=== PATIENT | male | born 1960 | race Caucasian/White ===

== ENCOUNTER 2020-08-17 09:07 | Outpatient (CLI) | payer BC ==
--- NOTE | 2020-08-17 14:51 | NM ---
Exam: Nuclear medicine imaging for Parkinson's HISTORY: Memory loss. Balance issues. Speech issues. Weight loss and tremors. TECHNIQUE: Patient was administered 4.7 mCi of I-123 Ioflupane intravenously, 3 hours prior to imagi ng FINDINGS: There is decreased signal intensity involving the left and right putamen. Overall there is slightly decreased activity in the left putamen with respect to the contralateral side. IMPRESSION: Decrease uptake in the putamen, left greater than right. Findings do raise the possibilit y of a Parkinson syndrome/movement disorder Transcribed Date/Time: 08/17/2020 2:57 PM
== END 2020-08-17 09:08 | disposition home or self-care (01) ==
LOC: NM 09:07
PROVIDERS: ATTEND Psychiatry & Neurology Neurology
DX: G20 Parkinson's disease (principal)
CPT/HCPCS: 78803; A9584